=== PATIENT | female | born 1995 | race Two or more races ===

== ENCOUNTER 2020-09-01 15:23 | Emergency (ER) | payer OTHER ==
[2020-09-01 15:32] VITALS: BP 118/61
[2020-09-01] MEDS ORDERED: IBUPROFEN 800 MG TABLET PO ONE (15:47)
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
== END 2020-09-01 17:24 | disposition home or self-care (01) ==
LOC: ER 15:23
DX: S00.81XA Abrasion of other part of head, initial encounter (principal); S20.412A Abrasion of left back wall of thorax, initial encounter; S43.402A Unspecified sprain of left shoulder joint, initial encounter; S46.812A Strain of other muscles, fascia and tendons at shoulder and upper arm level, left arm, initial encounter; V89.2XXA Person injured in unspecified motor-vehicle accident, traffic, initial encounter
CPT/HCPCS: 99283